=== PATIENT | male | born 1940 | race Caucasian/White ===

== ENCOUNTER 2019-09-08 17:47 | Emergency (ER) | payer OTHER ==
[~2019-09-08] VITALS: Ht 170.2 cm; Wt 74.8 kg
[~2019-09-08 17:47] MED LIST: ASPI325T4 PO; ATOR20TA50 PO; BRIM0.2S17 EACHEYE; BUDE160A3 INH; CHOL100055 PO; CYAN100060 PO; FINA5TAB4 PO; GABA300C10 PO; GLIP5TAB12 PO; LATA0.0015 EACHEYE; LEVO150T10 PO; LISI10TA6 PO; LOPE2CAP PO; LUTE15CA PO; METO25TA5 PO; NIAC500T71 PO; OMEGCAP2 PO; OMEP20CA74 PO; TAM04C PO; TIMO0.5S67 EACHEYE; TRAZ50TA2 PO
[2019-09-08 19:07] LABS: Basophils # (auto) 0.1 uL; Eosinophils # (auto) 0.2 uL; Lymphocytes # (auto) 1.2 uL; Mean Corpuscular Hemoglobin 25.9 pg (28.0-32.0); Monocytes # (auto) 0.8 uL; Nucleated Red Blood Cells % 0.1 %; White Blood Cell 8.6 10^3/uL (4.4-10.8)
[2019-09-08 19:10] LABS: Eosinophils % (auto) 2.4 % (0.0-7.0); Hematocrit 42.8 % (41.0-53.0); Hemoglobin 13.7 g/dL (13.5-17.5); Lymphocytes % (auto) 13.9 % (10.0-50.0); Mean Corpuscular Volume 80.9 fL (80.0-100.0); Monocytes % (auto) 9.3 % (0.0-12.0); Neutrophils # (auto) 6.3 uL; Neutrophils % (auto) 73.4 % (37.0-80.0); Platelet Count (auto) 231 10^3/uL (140-450); Red Blood Cells 5.29 10^6/uL (4.5-5.90)
[2019-09-08 19:17] LABS: Alanine Aminotransferase 15 U/L (16-61); Albumin 3.2 g/dL (3.4-5.0); Anion Gap 5 (5-15); Aspartate Aminotransferase 18 U/L (15-37); BUN/Creatinine Ratio 12.4; Blood Urea Nitrogen 15 mg/dL (7-18); Calcium 8.7 mg/dL (8.5-10.1); Carbon Dioxide 27 mmol/L (21-32); Chloride 106 mmol/L (98-107); GFR African American 75 mL/min; GFR Non-African American 62 mL/min; Glucose 67 mg/dL (74-106); Potassium 4.1 mmol/L (3.5-5.1); Red Cell Distribution Width 36.1 % (11.8-14.3); Sodium 138 mmol/L (136-145)
[2019-09-08 19:22] LABS: Alkaline Phosphatase 172 U/L (45-117); Bilirubin, Total 0.3 mg/dL (0.2-1.0)
[2019-09-08 20:02] LABS: Urine Bacteria NONE SEEN /hpf (None Seen); Urine Blood 1+ /uL (Negative); Urine Mucus FEW (None Seen); Urine Specific Gravity 1.024 (1.001-1.035); Urine WBC 10 /hpf (0 - 3)
[2019-09-08] MEDS ORDERED: CIPROFLOXACIN HCL 500 MG TAB PO ONE (23:30)
[2019-09-08] MEDS ORDERED: SODIUM CHLORIDE 0.9% 1,000 ML IV ONE (23:30)
[2019-09-08] MEDS ORDERED: ONDANSETRON HCL 4 MG/2 ML VIAL IV ONE (23:30)
[2019-09-08] MEDS ORDERED: MORPHINE SULFATE 4 MG/ML SYR/VIAL IV ONE (23:30)
[2019-09-09 00:10] VITALS: BP 125/65
== END 2019-09-09 00:54 | disposition home or self-care (01) ==
LOC: ER 17:47
DX: K52.9 Noninfective gastroenteritis and colitis, unspecified (principal); J44.9 Chronic obstructive pulmonary disease, unspecified; I25.10 Atherosclerotic heart disease of native coronary artery without angina pectoris; E11.9 Type 2 diabetes mellitus without complications; E78.00 Pure hypercholesterolemia, unspecified; I25.2 Old myocardial infarction; Z95.1 Presence of aortocoronary bypass graft; Z90.89 Acquired absence of other organs; Z79.82 Long term (current) use of aspirin; Z79.899 Other long term (current) drug therapy
CPT/HCPCS: 36415; 74176; 80053; 81001; 84484; 85025; 93005; 96361; 96374; 96375; 99284; J2270; J2405; J7030